=== PATIENT | male | born 1995 | race Caucasian/White ===

== ENCOUNTER 2020-08-23 16:41 | Emergency (ER) | payer OTHER ==
[~2020-08-23] VITALS: Ht 175.3 cm; Wt 75.8 kg
[2020-08-23 20:23] VITALS: BP 117/70
== END 2020-08-23 20:28 | disposition home or self-care (01) ==
LOC: M ED 16:41
DX: S00.03XA Contusion of scalp, initial encounter (principal); W22.09XA Striking against other stationary object, initial encounter; Y92.138 Other place on military base as the place of occurrence of the external cause; Y93.89 Activity, other specified; Y99.1 Military activity; H53.8 Other visual disturbances; R20.0 Anesthesia of skin

== ENCOUNTER 2021-02-18 17:10 | Emergency (ER) | payer OTHER ==
[~2021-02-18] VITALS: Ht 172.7 cm; Wt 73.8 kg
--- NOTE | 2021-02-18 22:02 | REPVR ---
PROCEDURE INFORMATION: Exam: XR Lumbosacral Spine Exam date and time: 02/18/2021 9:24 PM Age: 26 years old Clinical indication: Low back pain; Additional info: Trauma, low back pain TECHNIQUE: Imaging protocol: XR of the lumbosacral spine. Views: 4 or 5 views. COMPARISON: No relevant prior studies available. FINDINGS: Bones/joints: No acute fracture or malalignment. Disc spaces are unremarkable. Mild lower lumbar facet DJD. L5 pars defect on the left. Soft tissues: Unremarkable. IMPRESSION: 1. Left L5 pars defect. Mild facet DJD. 2. No fracture or malalignment. Electronically signed by: Tl Yao On 02/18/2021 22:01:34 PM
[2021-02-18] MEDS ORDERED: CYCL-707 PO (22:26)
[2021-02-18] MEDS ORDERED: NAPR-837 PO (22:26)
[2021-02-18] MEDS ORDERED: NAPROXEN 250 MG TAB PO ONE (22:30)
[2021-02-18] MEDS ORDERED: CYCLOBENZAPRINE 10MG TABLET PO ONE (22:30)
[2021-02-18 22:34] VITALS: BP 116/53
== END 2021-02-18 22:36 | disposition home or self-care (01) ==
LOC: M ED 17:10
DX: S39.012A Strain of muscle, fascia and tendon of lower back, initial encounter (principal); W01.0XXA Fall on same level from slipping, tripping and stumbling without subsequent striking against object, initial encounter; Y92.89 Other specified places as the place of occurrence of the external cause; M51.9 Unspecified thoracic, thoracolumbar and lumbosacral intervertebral disc disorder; M41.9 Scoliosis, unspecified